=== PATIENT | male | born 1975 | race Caucasian/White ===

== ENCOUNTER → 2016-08-26 | Outpatient (CLI) | payer BC ==
--- NOTE | 2016-08-26 11:18 | CR ---
EXAMINATION: Left shoulder HISTORY: Pain COMPARISON: None TECHNIQUE: 3 views FINDINGS/IMPRESSION: There is no acute osseous abnormality, dislocation, or fracture identified. Bon e mineralization and joint spaces appear preserved. 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
== END ==
LOC: MW.CHFP 08:27
PROVIDERS: ATTEND Student in an Organized Health Care Education/Training Program
DX: M25.512 Pain in left shoulder (principal); M19.012 Primary osteoarthritis, left shoulder
CPT/HCPCS: 73030-26-LT; 73030-LT

== ENCOUNTER → 2016-09-03 | Outpatient (CLI) | payer BC ==
--- NOTE | 2016-09-06 10:59 | MR ---
EXAMINATION: MRI of the left shoulder HISTORY: Pain COMPARISON: Radiographs dated 08/26/2016 TECHNIQUE: Multiplanar and multisequence images obtained of the left shoulder without contrast. FINDINGS: There is a type II acromion. Mild acromioclavicular osteophytic changes are noted with per iarticular edema. There is a trace of the acromial fluid. There is a tiny partial-thickness tear of the supraspinatus tendon anteriorly at the footplate. Impression areas and teres minor tendons appea r intact. The long head biceps tendon is present within the bicipital groove. The overlying subscapu cesario tendon is intact. The articular surfaces are preserved. No joint effusion. The inferior glenoh umeral ligament appears intact. IMPRESSION: 1. Small partial thickness tear of the supraspinatus tendon anteriorly at the footplate. 2. Mild acromioclavicular osteophytic changes with moderate periarticular edema.
== END ==
LOC: MW.MRI 14:33
PROVIDERS: ATTEND Student in an Organized Health Care Education/Training Program
DX: M25.512 Pain in left shoulder (principal)
CPT/HCPCS: 73221-26-LT; 73221-LT

== ENCOUNTER → 2016-10-28 | Outpatient (CLI) | payer BC ==
--- NOTE | 2016-10-28 13:14 | CR ---
EXAMINATION: Abdomen HISTORY: Pain COMPARISON: None TECHNIQUE: AP views FINDINGS: There is a small amount of stool and gas right the colon and rectum without evidence of a bowel obstruction. No abnormal calcifications project over the kidneys. No organomegaly. The visuali zed osseous structures appear normal. IMPRESSION: Nonobstructive bowel gas pattern.
== END ==
LOC: MW.CHFP 09:33
PROVIDERS: ATTEND Student in an Organized Health Care Education/Training Program
DX: R10.30 Lower abdominal pain, unspecified (principal); R33.9 Retention of urine, unspecified
CPT/HCPCS: 74000; 74000-26; 81001

== ENCOUNTER 2018-02-13 16:30 | Emergency (ER) | payer BC ==
[2018-02-13] MEDS ORDERED: Sodium Chloride 0.9% 10 ML Syringe FLUSH PRN (16:32)
[2018-02-13] MEDS ORDERED: Sodium Chloride 0.9% 2.5 ML Syringe FLUSH PRN (16:32)
--- NOTE | 2018-02-13 16:50 | EDM.PDOC ---
ED HPI GENERAL MEDICAL PROBLEM - General Chief Complaint: Neuro Symptoms/Deficits Stated Complaint: pain in the back of his head Time Seen by Provider: 02/13/18 16:34 Source of Information: Reports: Patient History Limitations: Reports: No Limitations - History of Present Illness INITIAL COMMENTS - FREE TEXT/NARRATIVE: HISTORY AND PHYSICAL: Stroke code was called at 1630 by nursing staff - Dr Martinez is involved in this case. History of present illness: Patient is a 43-year-old male who presents to the emergency room today with complaints of pain to posterior base of skull, which he describes as sharp and throbbing. Pain radiates to bilateral upper extremity and associated with numbness and tingling. Has light and noise sensitivity. He denies any recent head injury or trauma. Denies any fever, chills, chest pain, shortness of breath , cough. Denies any abdominal pain, nausea, vomiting, diarrhea or constipation. He has been eating and drinking appropriately. Review of systems: As per history of present illness and below otherwise all systems reviewed and negative. Past medical history: As per history of present illness and as reviewed below otherwise noncontributory. Surgical history: As per history of present illness and as reviewed below otherwise noncontributory. Social history: No reported history of drug or alcohol abuse. Family history: As per history of present illness and as reviewed below otherwise noncontributory. Physical exam: General: Well-developed and well-nourished 43-year-old male. Alert and oriented. Nontoxic appearing and in no acute distress. HEENT: Atraumatic, no pain with palpation, normocephalic, pupils equal and reactive bilaterally, negative for conjunctival pallor or scleral icterus, mucous membranes moist, throat clear, neck supple, nontender, trachea midline. No drooling or trismus noted. No meningeal signs Lungs: Clear to auscultation, breath sounds equal bilaterally, chest nontender. Heart: S1S2, regular rate and rhythm without overt murmur Abdomen: Soft, nondistended, nontender. Negative for masses or hepatosplenomegaly. Negative for costovertebral tenderness. Pelvis: Stable nontender. Genitourinary: Deferred. Rectal: Deferred. Skin: Intact, warm, dry. No lesions or rashes noted. Extremities: Atraumatic, moves all per self without difficult deficits, negative for cords or calf pain. Neurovascular unremarkable. Neuro: Awake, alert, oriented. Cranial nerves II through XII unremarkable. Cerebellum unremarkable. Motor and sensory unremarkable throughout. Exam nonfocal. Notes: GCS: 15 and NIH: 0. Bedside glucose 94. Stroke Code Protocol followed at this time. 1650: No acute findings on the CT (Consulting radiology called report). States he is unable to void for UA; will cancel. After receiving the IV fluids and medications, patient states he is 1 out of 10 for headache pain. We did discuss admission which she declined. Patient's vital signs are stable. Continues to be NIH 0, GCS 15. No neurological deficits. Denies any numbness or tingling at this time. We discussed follow-up care. He voices understanding and is agreeable to plan of care. Denies any further questions or concerns at this time. Diagnostics: CBC, CMP, PT/INR, TSH, Drug Screen, EKG, Troponin, EKG, Head CT Therapeutics: Saline Lock Prescription: None Impression: Headache Parasthesia Plan: 1. Please stop smoking 2. Take the rest of the day to rest. No driving, as the medications you received today may cause drowsiness. 3. Tylenol and/or Ibuprofen as needed for pain. 4. Please follow up with your primary care provider in the next 1-2 days. Return to the ED as needed and as discussed. Definitive disposition and diagnosis as appropriate pending reevaluation and review of above. Onset: Today Posterior Headache Pain Score (Numeric/FACES): 10 - Related Data Allergies Allergy/AdvReac Type Severity Reaction Status Date / Time No Known Allergies Allergy Verified 02/13/18 17:47 ED ROS GENERAL - Review of Systems Review Of Systems: ROS reveals no pertinent complaints other than HPI. ED EXAM, NEURO - Physical Exam Exam: See Below (See dictation) Course - Vital Signs Last Recorded V/S: Last Vital Signs Temp 98.1 F 02/13/18 16:30 Pulse 78 02/13/18 16:30 Resp 18 02/13/18 16:30 BP 152/92 H 02/13/18 16:30 Pulse Ox 98 02/13/18 16:30 - Orders/Labs/Meds Orders: Active Orders 24 hr Category Date Time Status Blood Glucose Check, Bedside [RC] STAT Care 02/13/18 16:32 Active EKG Documentation Completion [RC] STAT Care 02/13/18 16:32 Active Initiate Acute Stroke Protocol [RC] STAT Care 02/13/18 16:32 Active NIH Stroke Scale [RC] ASDIRECTED Care 02/13/18 16:32 Active Nursing Bedside Swallow Screen [RC] ASDIRECTED Care 02/13/18 16:32 Active Head wo Cont [CT] Stat Exams 02/13/18 16:32 Taken DRUG SCREEN, URINE [URCHEM] Stat Lab 02/13/18 16:33 Ordered Sodium Chloride 0.9% [Saline Flush] Med 02/13/18 16:32 Active 10 ml FLUSH ASDIRECTED PRN Sodium Chloride 0.9% [Saline Flush] Med 02/13/18 16:32 Active 2.5 ml FLUSH ASDIRECTED PRN Peripheral IV Insertion Adult [OM.PC] Stat Oth 02/13/18 16:32 Ordered Medication Orders Sodium Chloride (Saline Flush) 10 ml FLUSH ASDIRECTED PRN PRN Reason: Keep Vein Open Sodium Chloride (Saline Flush) 2.5 ml FLUSH ASDIRECTED PRN PRN Reason: Keep Vein Open Labs: Laboratory Tests 02/13/18 02/13/18 02/13/18 Range/Units 16:56 16:56 16:56 WBC 9.40 (4.0-11.0) K/uL RBC 5.98 H (4.50-5.90) M/uL Hgb 20.8 H (13.0-17.0) g/dL Hct 57.7 H (38.0-50.0) % MCV 96.5 (80.0-98.0) fL MCH 34.8 H (27.0-32.0) pg MCHC 36.0 (31.0-37.0) g/dL RDW Std Deviation 47.9 (28.0-62.0) fl RDW Coeff of Shayla 13 (11.0-15.0) % Plt Count 161 (150-400) K/uL MPV 11.20 (7.40-12.00) fL Neut % (Auto) 71.6 (48.0-80.0) % Lymph % (Auto) 16.5 (16.0-40.0) % [place] % (Auto) 9.5 (0.0-15.0) % Eos % (Auto) 2.0 (0.0-7.0) % Baso % (Auto) 0.4 (0.0-1.5) % Neut # (Auto) 6.7 H (1.4-5.7) K/uL Lymph # (Auto) 1.6 (0.6-2.4) K/uL [place] # (Auto) 0.9 H (0.0-0.8) K/uL Eos # (Auto) 0.2 (0.0-0.7) K/uL Baso # (Auto) 0.0 (0.0-0.1) K/uL Nucleated RBC % 0.0 /100WBC Nucleated RBCs # 0 K/uL INR 1.14 APTT 26.2 (18.6-31.3) SEC Sodium 140 (136-148) mmol/L Potassium 3.5 (3.5-5.1) mmol/L Chloride 103 (98-107) mmol/L Carbon Dioxide 27.7 (21.0-32.0) mmol/L BUN 8 (7.0-18.0) mg/dL Creatinine 1.2 (0.8-1.3) mg/dL Est Cr Clr Drug Dosing TNP Estimated GFR (MDRD) > 60.0 ml/min Glucose 104 (74-106) mg/dL Calcium 9.2 (8.5-10.1) mg/dL Total Bilirubin 0.7 (0.2-1.0) mg/dL AST 29 (15-37) IU/L ALT 33 (14-63) IU/L Alkaline Phosphatase 117 H (46-116) U/L Troponin I < 0.050 (0.000-0.056) ng/mL Total Protein 7.1 (6.4-8.2) g/dL Albumin 3.6 (3.4-5.0) g/dL Globulin 3.5 (2.0-3.5) g/dL Albumin/Globulin Ratio 1.0 L (1.3-2.8) TSH 3rd Generation 1.77 (0.36-3.74) uIU/mL Meds: Medications Generic Name Dose Route Start Last Admin Trade Name Freq PRN Reason Stop Dose Admin Sodium Chloride 10 ml 02/13/18 16:32 Saline Flush FLUSH ASDIRECTED PRN Keep Vein Open Sodium Chloride 2.5 ml 02/13/18 16:32 Saline Flush FLUSH ASDIRECTED PRN Keep Vein Open Discontinued Medications Generic Name Dose Route Start Last Admin Trade Name Petey PRN Reason Stop Dose Admin Diphenhydramine HCl 50 mg 02/13/18 17:14 02/13/18 17:28 Benadryl IVPUSH 02/13/18 17:15 50 mg ONETIME ONE Administration Sodium Chloride 1,000 mls @ 999 mls/hr 02/13/18 17:09 02/13/18 17:28 Normal Saline IV 02/13/18 18:09 999 mls/hr STAT ONE Administration Ketorolac Tromethamine 30 mg 02/13/18 17:09 02/13/18 17:28 Toradol IVPUSH 02/13/18 17:10 30 mg ONETIME ONE Administration Metoclopramide HCl 10 mg 02/13/18 17:14 02/13/18 17:28 Reglan IV 02/13/18 17:15 10 mg ONETIME ONE Administration Ondansetron HCl 4 mg 02/13/18 17:09 02/13/18 17:28 Zofran IVPUSH 02/13/18 17:10 4 mg ONETIME ONE Administration Departure - Departure Time of Disposition: 18:14 Disposition: Home, Self-Care 01 Clinical Impression: Paresthesia and pain of both upper extremities Migraine headache Qualifiers: Migraine type: unspecified Status migrainosus presence: without status migrainosus Intractability: not intractable Qualified Code(s): G43.909 - Migraine, unspecified, not intractable, without status migrainosus - Discharge Information Instructions: Migraine Headache, [id number], Paresthesia Referrals: PCP,None [Primary Care Provider] - Forms: ED Department Discharge Additional Instructions: The following information is given to patients seen in the emergency department who are being discharged to home. This information is to outline your options for follow-up care. We provide all patients seen in our emergency department with a follow-up referral. The need for follow-up, as well as the timing and circumstances, are variable depending upon the specifics of your emergency department visit. If you don't have a primary care physician on staff, we will provide you with a referral. We always advise you to contact your personal physician following an emergency department visit to inform them of the circumstance of the visit and for follow-up with them and/or the need for any referrals to a consulting specialist. The emergency department will also refer you to a specialist when appropriate. This referral assures that you have the opportunity for follow-up care with a specialist. All of these measure are taken in an effort to provide you with optimal care, which includes your follow-up. Under all circumstances we always encourage you to contact your private physician who remains a resource for coordinating your care. When calling for follow-up care, please make the office aware that this follow-up is from your recent emergency room visit. If for any reason you are refused follow-up, please contact the [facility] Emergency Department at and asked to speak to the emergency department charge nurse. [facility] Primary Care [address] [place] [id number] [facility] Specialty Care - Neurology Professional Building [address] [place] [address], [address] [place] [address] 1. Please stop smoking 2. Take the rest of the day to rest. No driving, as the medications you received today may cause drowsiness. 3. Tylenol and/or Ibuprofen as needed for pain. 4. Please follow up with your primary care provider or neurology in the next 1- 2 days. Return to the ED as needed and as discussed. - My Orders Last 24 Hours: My Active Orders 02/13/18 16:32 Blood Glucose Check, Bedside [RC] STAT EKG Documentation Completion [RC] STAT Initiate Acute Stroke Protocol [RC] STAT NIH Stroke Scale [RC] ASDIRECTED Nursing Bedside Swallow Screen [RC] ASDIRECTED Head wo Cont [CT] Stat Sodium Chloride 0.9% [Saline Flush] 10 ml FLUSH ASDIRECTED PRN Sodium Chloride 0.9% [Saline Flush] 2.5 ml FLUSH ASDIRECTED PRN Peripheral IV Insertion Adult [OM.PC] Stat 02/13/18 16:33 DRUG SCREEN, URINE [URCHEM] Stat - Assessment/Plan Last 24 Hours: My Active Orders 02/13/18 16:32 Blood Glucose Check, Bedside [RC] STAT EKG Documentation Completion [RC] STAT Initiate Acute Stroke Protocol [RC] STAT NIH Stroke Scale [RC] ASDIRECTED Nursing Bedside Swallow Screen [RC] ASDIRECTED Head wo Cont [CT] Stat Sodium Chloride 0.9% [Saline Flush] 10 ml FLUSH ASDIRECTED PRN Sodium Chloride 0.9% [Saline Flush] 2.5 ml FLUSH ASDIRECTED PRN Peripheral IV Insertion Adult [OM.PC] Stat 02/13/18 16:33 DRUG SCREEN, URINE [URCHEM] Stat
[2018-02-13] MEDS ORDERED: Sodium Chloride 0.9% 1,000 ML IV ONE (17:09)
[2018-02-13] MEDS ORDERED: Ondansetron 4 MG/2 ML SDV IVPUSH ONE (17:09)
[2018-02-13] MEDS ORDERED: Ketorolac 30 MG/ML SDV IVPUSH ONE (17:09)
[2018-02-13] MEDS ORDERED: Metoclopramide 10 MG/2 ML SDV IV ONE (17:14)
[2018-02-13] MEDS ORDERED: diphenhydrAMINE 50 MG/ML SDV IVPUSH ONE (17:14)
[2018-02-13 17:34] LABS: CHLORIDE,CL 103 mmol/L (98-107); SODIUM,NA 140 mmol/L (136-148)
--- NOTE | 2018-02-14 09:42 | CT ---
EXAM DATE: 02/13/18 PATIENT'S AGE: 43 Patient: KRIS COBURN Facility: [place], [place] Site . Site : [id number] Study: CT Head STROKE PROTOCOL WO CONT [id number]/3/2018 4:42:49 PM Ordering Physician: Doctor Velazquez Final Report: Indication: Stroke code Technique: Noncontrast head CT scan. Comparison: No comparison studies are available. Findings: Axial noncontrast images through brain parenchyma demonstrates no acute intracranial hemorrhage or mass. No midline shift. No abnormal extra-axial air fluid collections. The visualized paranasal sinuses, mastoid air cells skull and scalp appear unremarkable aside from mucosal thickening of the ethmoid air cells Impression: 1. No acute intracranial hemorrhage or mass. Result called the emergency physician on 02/13/2018 at 4:51 p.m. Please note that all CT scans at this facility use dose modulation, iterative reconstruction, and/or weight-based dosing when appropriate to reduce radiation dose to as low as reasonably achievable. Dictated by Viviana Burrell MD @ Feb 13 2018 4:50PM (Electronic Signature) Report Signed by Proxy. BON
== END 2018-02-13 18:25 | disposition home or self-care (01) ==
LOC: MW.ED 16:30
DX: G43.909 Migraine, unspecified, not intractable, without status migrainosus (principal); R20.2 Paresthesia of skin
CPT/HCPCS: 70450; 80053; 84443; 84484; 85025; 85610; 85730; 93005; 96361; 96374; 96375; 99284; J1200; J1885; J2405; J2765; J7040; 99283

== ENCOUNTER 2019-01-05 08:39 | Day surgery (SDC) | payer BC ==
[~2019-01-05 08:39] MED LIST: Lactated Ringers 1,000 ML IV SCH
--- NOTE | 2019-01-05 09:08 | PCM.PREANE ---
Preanesthetic Assessment - Anesthesia/Transfusion/Family Hx Anesthesia History: Prior Anesthesia Reaction (has bitten his tongue on awakening several times) Family History of Anesthesia Reaction: No Transfusion History: No Prior Transfusion(s) - Review of Systems General: No Symptoms Pulmonary: No Symptoms Cardiovascular: No Symptoms Neurological: No Symptoms Other: Reports: None - Physical Assessment NPO Status Date: 01/04/19 NPO Status Time: 22:00 O2 Sat by Pulse Oximetry: 98 Respiratory Rate: 16 Vital Signs: Last Vital Signs Temp 98.4 F 01/05/19 08:50 Pulse 71 01/05/19 08:50 Resp 16 01/05/19 08:50 BP 122/87 01/05/19 08:50 Pulse Ox 98 01/05/19 08:50 Height: 6 ft Weight: 83.915 kg ASA Class: 2 Mental Status: Alert & Oriented x3 Airway Class: Mallampati = 2 Dentition: Reports: Normal Dentition ROM/Head Extension: Full Lungs: Clear to Auscultation, Normal Respiratory Effort Cardiovascular: Regular Rate, Regular Rhythm - Allergies Allergies/Adverse Reactions: Allergies Allergy/AdvReac Type Severity Reaction Status Date / Time hydrocodone Allergy Rash Verified 01/02/19 11:52 - Blood Blood Available: No - Anesthesia Plan Pre-Op Medication Ordered: None - Acknowledgements Anesthesia Type Planned: General Anesthesia Pt an Appropriate Candidate for the Planned Anesthesia: Yes Alternatives and Risks of Anesthesia Discussed w Pt/Guardian: Yes Pt/Guardian Understands and Agrees with Anesthesia Plan: Yes Additional Comments: PMH: smoker, BPH, has bitten tongue during emergence- please watch tongue position during mac/tiva PLAN: tiva PreAnesthesia Questionnaire HEENT History: Reports: None Cardiovascular History: Reports: None Respiratory History: Reports: None Gastrointestinal History: Reports: Other (See Below) Other Gastrointestinal History: rectal bleeding Genitourinary History: Reports: BPH, Prostate Disorder Musculoskeletal History: Reports: Arthritis Neurological History: Reports: None Psychiatric History: Reports: None Endocrine/Metabolic History: Reports: None Hematologic History: Reports: None Immunologic History: Reports: None Oncologic (Cancer) History: Reports: None Dermatologic History: Reports: None - Infectious Disease History Infectious Disease History: Reports: None - Past Surgical History Head Surgeries/Procedures: Reports: None HEENT Surgical History: Reports: None Cardiovascular Surgical History: Reports: None Respiratory Surgical History: Reports: None GI Surgical History: Reports: None Male Surgical History: Reports: None Endocrine Surgical History: Reports: None Neurological Surgical History: Reports: None Musculoskeletal Surgical History: Reports: Shoulder Surgery Other Musculoskeletal Surgeries/Procedures:: rt shoulder surgery x2 Oncologic Surgical History: Reports: None Dermatological Surgical History: Reports: None - SUBSTANCE USE Smoking Status *Q: Current Every Day Smoker Tobacco Use Within Last Twelve Months: Cigarettes Recreational Drug Use History: No - HOME MEDS Home Medications: Home Meds Levofloxacin [Levaquin] 1 tab PO DAILY 01/02/19 [History] - CURRENT (IN HOUSE) MEDS Current Meds: Current Medications Lactated Ringer's (Ringers, Lactated) 1,000 mls @ 125 mls/hr IV ASDIRECTED [facility] Last Admin: 01/05/19 08:55 Dose: 125 mls/hr
[2019-01-05] MEDS ORDERED: Lidocaine 2% 5 ML SDV ONE (09:40)
[2019-01-05] MEDS ORDERED: Propofol 200 MG/20 ML SDV ONE (09:41)
[2019-01-05] MEDS ORDERED: fentaNYL 100 MCG/2 ML SDV ONE (09:41)
--- NOTE | 2019-01-05 10:32 | PCM.OPNOTE ---
- General Post-Op/Procedure Note Date of Surgery/Procedure: 01/05/19 Operative Procedure(s): Colonoscopy with cold rectal polypectomy Pre Op Diagnosis: Intermittent rectal bleeding. Change in bowel habits. Post-Op Diagnosis: Rectal polyp Anesthesia Technique: MAC (ASA II) Primary Surgeon: Jameel Mendoza Condition: Good Free Text/Narrative:: DICTATION [id number] CPT CODE 98339
[2019-01-05] MEDS ORDERED: Lactated Ringers 1,000 ML IV SCH (10:45)
--- NOTE | 2019-01-05 11:19 | PCM.POSTAN ---
POST ANESTHESIA ASSESSMENT - MENTAL STATUS Mental Status: Alert, Oriented - RESPIRATORY Respiratory Status: Respiratory Rate WNL, Airway Patent, O2 Saturation Stable - CARDIOVASCULAR CV Status: Pulse Rate WNL, Blood Pressure Stable - GASTROINTESTINAL GI Status: No Symptoms - POST OP HYDRATION Hydration Status: Adequate & Stable
--- NOTE | 2019-01-05 17:34 | OR ---
SURGEON: Jameel Mendoza M.D. DATE OF PROCEDURE: 01/05/2019 OPERATION PERFORMED: Colonoscopy with cold rectal polypectomy. PRIMARY SURGEON: Jameel Mendoza M.D. ANESTHESIA: MAC. ASA CLASSIFICATION: II. PREOPERATIVE DIAGNOSIS: Intermittent rectal bleeding with change in bowel habits. POSTOPERATIVE DIAGNOSIS: Small rectal polyp. DESCRIPTION OF PROCEDURE: The patient was taken to the endoscopy room and positioned on the endoscopy table in the left lateral decubitus position. Time-out was called for appropriate identification of the patient and procedure. Monitored anesthesia care was provided. The colonoscope was inserted into the rectum and advanced with minimal difficulty to the cecum. The cecum was identified by internal landmarks and external pressure. The colonoscope was retroflexed to visualize the ascending colon from below, then straightened and slowly withdrawn. The cecum, ascending colon, hepatic flexure, transverse colon, splenic flexure, descending colon, sigmoid colon were fairly well visualized, although there was a fair amount of mucus present. No obvious tumors, polyps, or diverticular changes were noted anywhere. As the scope was withdrawn to the proximal rectum, one small polyp was encountered. This was approximately 3 mm in size and removed with the cold biopsy forceps. The colonoscope was then withdrawn to the distal rectum and retroflexed to visualize the anal orifice from above. No tumors, polyps, or acute hemorrhoidal changes were noted. The colonoscope was then straightened the rectum aspirated, and the colonoscope removed. The patient tolerated the procedure well and was taken to recovery room in stable condition. BRI MCCULLOUGH /[id number] BON
== END 2019-01-05 11:22 | disposition home or self-care (01) ==
LOC: MW.SDS 08:39
PROVIDERS: ATTEND Surgery
DX: K62.1 Rectal polyp (principal); M19.90 Unspecified osteoarthritis, unspecified site; N41.9 Inflammatory disease of prostate, unspecified; F17.210 Nicotine dependence, cigarettes, uncomplicated; Z83.79 Family history of other diseases of the digestive system; Z80.7 Family history of other malignant neoplasms of lymphoid, hematopoietic and related tissues; Z88.5 Allergy status to narcotic agent
CPT/HCPCS: 45380; J2001; J2704; J3010; J7120; 88305

== ENCOUNTER 2019-07-23 08:52 | Emergency (ER) | payer BC ==
--- NOTE | 2019-07-23 10:31 | EDM.PDOC ---
ED HPI GENERAL MEDICAL PROBLEM - General Chief Complaint: Lower Extremity Injury/Pain Stated Complaint: PAIN IN LEG Time Seen by Provider: 07/23/19 10:00 Source of Information: Reports: Patient History Limitations: Reports: No Limitations - History of Present Illness INITIAL COMMENTS - FREE TEXT/NARRATIVE: Patient is a 44-year-old male who is complaining of having pain behind his knee on the left side that is been ongoing for the last few days but is recently gotten worse. Patient denies being bedridden or any long trips or any recent surgeries. Patient has had a previous blood clot/DVT on his other leg and does have a history of prostate cancer for which he is being followed by Dr. Shaikh who is an oncologist in [facility]. Patient denies any change in warmth or color to his lower extremity. He denies any injury. Pain is worse with ambulation. Duration: Week(s): (None), Getting Worse Location: Reports: Upper Extremity, Left Quality: Reports: Ache, Throbbing Severity: Moderate Improves with: Reports: None Worsens with: Reports: Movement Associated Symptoms: Reports: No Other Symptoms L calf Pain Score (Numeric/FACES): 8 - Related Data Allergies Allergy/AdvReac Type Severity Reaction Status Date / Time hydrocodone Allergy Rash Verified 07/23/19 09:09 Home Meds: Home Meds . [No Known Home Meds] 02/15/19 [History] Past Medical History HEENT History: Reports: None Cardiovascular History: Reports: None Respiratory History: Reports: None Gastrointestinal History: Reports: None Genitourinary History: Reports: Prostate Disorder Musculoskeletal History: Reports: Arthritis, Fracture Other Musculoskeletal History: hx fx collarbone, fingers and ankle Neurological History: Reports: Concussion Psychiatric History: Reports: None Endocrine/Metabolic History: Reports: None Hematologic History: Reports: None Immunologic History: Reports: None Oncologic (Cancer) History: Reports: Prostate Dermatologic History: Reports: None - Infectious Disease History Infectious Disease History: Reports: None - Past Surgical History Head Surgeries/Procedures: Reports: None HEENT Surgical History: Reports: LASIK Cardiovascular Surgical History: Reports: None Respiratory Surgical History: Reports: None GI Surgical History: Reports: Colonoscopy Male Surgical History: Reports: None, Prostatectomy Endocrine Surgical History: Reports: None Neurological Surgical History: Reports: None Musculoskeletal Surgical History: Reports: Shoulder Surgery Other Musculoskeletal Surgeries/Procedures:: rt shoulder surgery x2 Oncologic Surgical History: Reports: None Dermatological Surgical History: Reports: None Social & Family History - Family History Family Medical History: Noncontributory - Tobacco Use Smoking Status *Q: Current Every Day Smoker Years of Tobacco use: 20 Packs/Tins Daily: 1 - Caffeine Use Caffeine Use: Reports: Coffee - Recreational Drug Use Recreational Drug Use: No Review of Systems - Review of Systems Review Of Systems: Comprehensive ROS is negative, except as noted in HPI. ED EXAM, GENERAL - Physical Exam Exam: See Below Free Text/Narrative:: Exam: See Below Exam Limited By: No Limitations Head: Atraumatic Neck: Normal Inspection. No: Carotid Bruit, Lymphadenopathy (R) Respiratory/Chest: No Respiratory Distress, Lungs Clear, Normal Breath Sounds, No Accessory Muscle Use. No: Chest Non-Tender Cardiovascular: Normal Peripheral Pulses, Regular Rate, Rhythm, No Edema, No JVD GI/Abdominal: Normal Bowel Sounds, Tender. No: Non-Tender, Splenomegaly Back Exam: Normal Inspection. No: CVA Tenderness (R) Extremities: Positive for pain and tenderness and small amount of swelling on his proximal calf. Negative Homans sign. Neurovascularly intact. No: No Pedal Edema Neurological: Alert, Oriented, Normal Cognition Psychiatric: Normal Affect Skin Exam: Warm Lymphatic: No Adenopathy Course - Vital Signs Text/Narrative:: Patient's d-dimer was elevated 0.73. Ultrasound of his left lower extremity shows him to have a clot in the lesser saphenous vein which extends close to the popliteal vein but no DVT. I am attempting to call his oncologist to see if they want him placed on blood thinner such as Eliquis at this time due to his history of prostate cancer. We were unable to reach his oncologist and I am going to put him on 2 days worth of Eliquis 10 mg twice a day and recommend he follow-up with oncology clinic this Tuesday to see if they want him to continue on the Eliquis. Patient refuses crutches and pain medicine at this time. He is instructed to return to ER if his symptoms were to worsen. Last Recorded V/S: Last Vital Signs Temp 36.4 C 07/23/19 09:10 Pulse 89 07/23/19 09:10 Resp 16 07/23/19 09:10 BP 106/87 07/23/19 09:10 Pulse Ox 96 07/23/19 09:10 - Orders/Labs/Meds Labs: Laboratory Tests 07/23/19 Range/Units 09:40 D-Dimer, Quantitative 0.73 H (0.0-0.50) mg/L FEU Meds: Medications Discontinued Medications Generic Name Dose Route Start Last Admin Trade Name Petey PRN Reason Stop Dose Admin Apixaban 10 mg 07/23/19 12:01 Eliquis PO 07/23/19 12:02 ONETIME ONE Apixaban 10 mg 07/23/19 12:02 Eliquis PO 07/23/19 12:03 ONETIME ONE Departure - Departure Time of Disposition: 12:05 Disposition: Home, Self-Care 01 Condition: Good Clinical Impression: Superficial thrombophlebitis of left leg, History of prostate cancer - Discharge Information Instructions: Thrombophlebitis Referrals: PCP,None [Primary Care Provider] - Forms: ED Department Discharge Additional Instructions: Aspirin for next several days. Follow-up with oncologist this Tuesday to see if they want to continue on Eliquis. Return to emergency department if symptoms are worse. Care Plan Goals: The following information is given to patients seen in the emergency department who are being discharged to home. This information is to outline your options for follow-up care. We provide all patients seen in our emergency department with a follow-up referral. The need for follow-up, as well as the timing and circumstances, are variable depending upon the specifics of your emergency department visit. If you don't have a primary care physician on staff, we will provide you with a referral. We always advise you to contact your personal physician following an emergency department visit to inform them of the circumstance of the visit and for follow-up with them and/or the need for any referrals to a consulting specialist. The emergency department will also refer you to a specialist when appropriate. This referral assures that you have the opportunity for follow-up care with a specialist. All of these measure are taken in an effort to provide you with optimal care, which includes your follow-up. Under all circumstances we always encourage you to contact your private physician who remains a resource for coordinating your care. When calling for follow-up care, please make the office aware that this follow-up is from your recent emergency room visit. If for any reason you are refused follow-up, please contact the [facility] Emergency Department at and asked to speak to the emergency department charge nurse. Sepsis Event Note - Evaluation Sepsis Screening Result: No Definite Risk - Focused Exam Vital Signs: Vital Signs Temp Pulse Resp BP Pulse Ox 07/23/19 09:10 36.4 C 89 16 106/87 96 Date Exam was Performed: 07/23/19 Time Exam was Performed: 12:04
--- NOTE | 2019-07-23 11:33 | US ---
Left lower extremity deep venous ultrasound: Duplex and color Doppler evaluation was obtained of the left common femoral, superficial femoral, popliteal, posterior tibial and lesser saphenous vein. Findings: Thrombus is identified within the lesser saphenous vein extending close to the popliteal vein. Other deep veins show normal compression and Doppler blood flow. Impression: 1. Clot within the lesser saphenous vein. This clot extends close to the popliteal vein. 2. No deep venous thrombosis is seen. Diagnostic code #3 Study was dictated in [place] Standard Time
[2019-07-23] MEDS ORDERED: Apixaban 5 MG Tab PO ONE ×2 (12:01→12:02)
== END 2019-07-23 12:36 | disposition home or self-care (01) ==
LOC: MW.ED 08:52
DX: I80.02 Phlebitis and thrombophlebitis of superficial vessels of left lower extremity (principal); F17.210 Nicotine dependence, cigarettes, uncomplicated; Z85.46 Personal history of malignant neoplasm of prostate; Z88.8 Allergy status to other drugs, medicaments and biological substances
CPT/HCPCS: 36415; 85379; 93971; 99284; A9270